=== PATIENT | female | born 1980 | race Caucasian/White ===

== ENCOUNTER 2016-05-08 08:45 | Emergency (ER) | payer OTHER ==
[2016-05-08 08:55] VITALS: BP 126/69; TEMP 97.5; BMI 30.7
[2016-05-08 10:45] LABS: BASOPHIL 1.2 % (0-2.0); EOSINOPHIL 1.6 % (0-4.5); MCH 28.9 pg (25.7-33.7); MCHC 33.7 g/dl (32.0-36.0); MEAN CELL VOLUME 85.9 fl (80-96); MEAN PLT VOLUME 8.3 fl (7.5-11.1); NEUTROPHILS 46.6 % (42.8-82.8); PLATELET COUNT 242 K/MM3 (134-434); RDW 14.3 % (11.6-15.6); WHITE BLOOD COUNT 7.3 K/mm3 (4.0-10.0)
[2016-05-08 10:48] LABS: URINE APPEARANCE SLCLOUDY; URINE BILIRUBIN NEGATIVE (NEGATIVE); URINE COLOR YELLOW; URINE GLUCOSE (UA) NEGATIVE (NEGATIVE); URINE KETONE NEGATIVE (NEGATIVE); URINE NITRITE NEGATIVE (NEGATIVE); URINE PROTEIN NEGATIVE (NEGATIVE); URINE UROBILINOGEN NEGATIVE E.U./dl (0.2-1.0)
[2016-05-08 10:49] LABS: URINE BLOOD 3+ (NEGATIVE); URINE LEUK ESTERASE TRACE (NEGATIVE)
[2016-05-08 10:53] LABS: URINE MUCUS FEW; URINE WBC 5 /hpf (3-5)
[2016-05-08 11:09] LABS: ALBUMIN 3.8 g/dl (3.4-5.0); ANION GAP 7 (8-16); BILIRUBIN,TOTAL 0.6 mg/dL (0.2-1.0); CALCIUM 9.3 mg/dL (8.5-10.1); CO2 26 mmol/L (21-32); CREATININE 0.7 mg/dL (0.55-1.02); GLUCOSE,RANDOM 87 mg/dL (74-106); SGOT/AST 12 U/L (15-37); SGPT/ALT 18 U/L (12-78); TOT PROT 7.5 g/dl (6.4-8.2)
[2016-05-08 11:10] LABS: ALK PHOS 60 U/L (45-117)
--- NOTE | 2016-05-08 11:18 | PDOC ---
History of Present Illness - General History Source: Patient Exam Limitations: No Limitations - History of Present Illness Initial Comments: 05/08/16 11:42 The patient is a 35 year old female, M1, with a significant past medical history of left ovarian cyst who presents to the ED with abdominal pain. The patient notes that the abdominal pain is worse with eating. She states that the pain initiated on the LLQ, 4/10, and radiated to the mid abdomen. She describes the pain as twisting pain. She notes that the pain is alleviated with Pepto. She notes that the ovarian cyst on the left side resolved on its own. She notes that her LMP was 05/03/2016 and she notes that today is the last day of her period. She reports recent sick contact with a coworker who has stomach flu Social history: 6-8 pack years, occasional alcohol use, occasional marijuana use <Alis Durbin - Last Filed: 05/08/16 11:42> <Greg Yarbrough - Last Filed: 05/08/16 14:11> - General Chief Complaint: Pain Stated Complaint: ABD PAIN Time Seen by Provider: 05/08/16 09:14 Past History <Alis Durbin - Last Filed: 05/08/16 11:42> - Past Medical History Other medical history: PT DENIES MECICAL HX - Psycho/Social/Smoking Cessation Hx Anxiety: No Suicidal Ideation: No Smoking History: Current every day smoker Have you smoked in the past 12 months: Yes Number of Cigarettes Smoked Daily: 10 Information on smoking cessation initiated: No 'Breaking Loose' booklet given: 12/26/14 Hx Alcohol Use: No Drug/Substance Use Hx: No Substance Use Type: None <Greg Yarbrough - Last Filed: 05/08/16 14:11> - Past Medical History Allergies/Adverse Reactions: Allergies Allergy/AdvReac Type Severity Reaction Status Date / Time No Known Allergies Allergy Verified 05/08/16 08:55 Home Medications: Ambulatory Orders Ibuprofen 800 mg PO TID #30 tablet 05/08/16 Ondansetron [Zofran *Odt*] 8 mg SL TID #30 od.tablet 05/08/16 Oxycodone HCl/Acetaminophen [Percocet 5-325 mg Tablet] 1 tab PO Q6H #20 tablet MDD 6 05/08/16 Review of Systems - Review of Systems Able to Perform ROS?: Yes Comments:: 05/08/16 11:42 GENERAL/CONSTITUTIONAL: No fever or chills. No weakness. HEAD, EYES, EARS, NOSE AND THROAT: No change in vision. No ear pain or discharge. No sore throat. CARDIOVASCULAR: No chest pain or shortness of breath. RESPIRATORY: No cough, wheezing, or hemoptysis. GASTROINTESTINAL: +abdominal pain, +nausea. No vomiting, diarrhea or constipation. GENITOURINARY: No dysuria, frequency, or change in urination. MUSCULOSKELETAL: No joint or muscle swelling or pain. No neck or back pain. SKIN: No rash NEUROLOGIC: No headache, vertigo, loss of consciousness, or change in strength/ sensation. ENDOCRINE: No increased thirst. No abnormal weight change. HEMATOLOGIC/LYMPHATIC: No anemia, easy bleeding, or history of blood clots. ALLERGIC/IMMUNOLOGIC: No hives or skin allergy. <Alis Durbin - Last Filed: 05/08/16 11:42> *Physical Exam - Vital Signs Last Vital Signs Temp Pulse Resp BP Pulse Ox 97.5 F L 60 16 126/69 98 05/08/16 08:53 05/08/16 08:53 05/08/16 08:53 05/08/16 08:53 05/08/16 08:53 - Physical Exam Comments: 05/08/16 11:43 GENERAL: Awake, alert, and fully oriented, in no acute distress HEAD: No signs of trauma EYES: PERRLA, EOMI, sclera anicteric, conjunctiva clear ENT: Auricles normal inspection, hearing grossly normal, nares patent, oropharynx clear without exudates. Moist mucosa NECK: Normal ROM, supple, no lymphadenopathy, JVD, or masses LUNGS: Breath sounds equal, clear to auscultation bilaterally. No wheezes, and no crackles HEART: Regular rate and rhythm, normal S1 and S2, no murmurs, rubs or gallops ABDOMEN: +Obese , +Hypoactive bowel sounds, +Tenderness to palpation over the LLQ. Soft, normoactive bowel sounds. No guarding, no rebound. No masses EXTREMITIES: Normal range of motion, no edema. No clubbing or cyanosis. No cords, erythema, or tenderness NEUROLOGICAL: Cranial nerves II through XII grossly intact. Normal speech, normal gait SKIN: Warm, Dry, normal turgor, no rashes or lesions noted. <Alis Durbin - Last Filed: 05/08/16 11:42> - Vital Signs Last Vital Signs Temp Pulse Resp BP Pulse Ox 97.5 F L 60 16 126/69 98 05/08/16 08:53 05/08/16 08:53 05/08/16 08:53 05/08/16 08:53 05/08/16 08:53 <Greg Yarbrough - Last Filed: 05/08/16 14:11> ED Treatment Course - LABORATORY CBC & Chemistry Diagram: 05/08/16 10:18 05/08/16 10:18 - ADDITIONAL ORDERS Additional order review: Laboratory Results 05/08/16 05/08/16 10:18 10:18 Sodium 141 Potassium 3.8 Chloride 108 H Carbon Dioxide 26 Anion Gap 7 L BUN 16 Creatinine 0.7 Creat Clearance w eGFR > 60 Random Glucose 87 Calcium 9.3 Total Bilirubin 0.6 AST 12 L ALT 18 Alkaline Phosphatase 60 Total Protein 7.5 Albumin 3.8 Urine Color Yellow Urine Appearance Slcloudy Urine pH 5.0 Ur Specific [place] 1.027 Urine Protein Negative Urine Glucose (UA) Negative Urine Ketones Negative Urine Blood 3+ H Urine Nitrite Negative Urine Bilirubin Negative Urine Urobilinogen Negative Ur Leukocyte Esterase Trace H Urine RBC None Urine WBC 5 Ur Epithelial Cells Moderate Urine Mucus Few Urine HCG, Qual Negative 05/08/16 10:18 RBC 4.44 MCV 85.9 MCHC 33.7 RDW 14.3 MPV 8.3 Neutrophils % 46.6 Lymphocytes % 44.3 H Monocytes % 6.3 Eosinophils % 1.6 Basophils % 1.2 <Alis Durbin - Last Filed: 05/08/16 11:42> - LABORATORY CBC & Chemistry Diagram: 05/08/16 10:18 05/08/16 10:18 - ADDITIONAL ORDERS Additional order review: Laboratory Results 05/08/16 05/08/16 10:18 10:18 Sodium 141 Potassium 3.8 Chloride 108 H Carbon Dioxide 26 Anion Gap 7 L BUN 16 Creatinine 0.7 Creat Clearance w eGFR > 60 Random Glucose 87 Calcium 9.3 Total Bilirubin 0.6 AST 12 L ALT 18 Alkaline Phosphatase 60 Total Protein 7.5 Albumin 3.8 Urine Color Yellow Urine Appearance Slcloudy Urine pH 5.0 Ur Specific [place] 1.027 Urine Protein Negative Urine Glucose (UA) Negative Urine Ketones Negative Urine Blood 3+ H Urine Nitrite Negative Urine Bilirubin Negative Urine Urobilinogen Negative Ur Leukocyte Esterase Trace H Urine RBC None Urine WBC 5 Ur Epithelial Cells Moderate Urine Mucus Few Urine HCG, Qual Negative 05/08/16 10:18 RBC 4.44 MCV 85.9 MCHC 33.7 RDW 14.3 MPV 8.3 Neutrophils % 46.6 Lymphocytes % 44.3 H Monocytes % 6.3 Eosinophils % 1.6 Basophils % 1.2 <Greg Yarbrough - Last Filed: 05/08/16 14:11> Medical Decision Making - Medical Decision Making 05/08/16 11:44 Patient is a 35 year old female with no pmhx who presents to the ED with abdominal pain that is worse with eating.. Will order labs, IVF, and transvaginal US. Will reassess after the results are back. <Alis Durbin - Last Filed: 05/08/16 11:42> *DC/Admit/Observation/Transfer - Attestations Scribe Attestion: 05/08/16 11:44 Documentation prepared by CHRISTINE Sweeney, acting as medical equipment repairer for Greg Yarbrough MD/DO. <Alis Durbin - Last Filed: 05/08/16 11:42> - Discharge Dispostion Admit: No - Attestations Physician Attestion: 05/08/16 11:18 I, Dr. Greg Yrabrough, attest that this document has been prepared under my direction and personally reviewed by me in its entirety. I further attest, that it accurately reflects all work, treatment, procedures and medical decision -making performed by me. <Greg Yarbrough - Last Filed: 05/08/16 14:11> Diagnosis at time of Disposition: Ovarian cyst Qualifiers: Laterality: left Qualified Code(s): N83.20 - Unspecified ovarian cysts - Discharge Dispostion Disposition: HOME Condition at time of disposition: Good - Prescriptions Prescriptions: Ibuprofen 800 mg PO TID #30 tablet Oxycodone HCl/Acetaminophen [Percocet 5-325 mg Tablet] 1 tab PO Q6H #20 tablet MDD 6 Ondansetron [Zofran *Odt*] 8 mg SL TID #30 od.tablet - Patient Instructions Printed Discharge Instructions: DI for Ovarian Cyst Additional Instructions: Roseya- You do have an ovarian cyst..... looks on CT that it is already ruptured.... so your pain should be less each day. Prescriptions for Pain medicine and Nausea medicine went directly to your pharmacy....... Percocet is only for really bad pain and if you take it, you should not drive or drink alcohol. Zofran is for the upset stomach you will get from the percocet. Follow up with your meal cook. Return to us if worse or any problems. Hope you feel better soon. Best- Dr. Greg Yarbrough
[2016-05-08] MEDS ORDERED: SODIUM CHLORIDE 1,000 ML IV STA (11:21)
[2016-05-08 14:31] VITALS: PULSE 64
== END 2016-05-08 14:30 | disposition home or self-care (01) ==
LOC: JER 08:45
PROC: 3E0337Z Introduction of Electrolytic and Water Balance Substance into Peripheral Vein, Percutaneous Approach (ICD-10-PCS; principal; 2016-05-08)
DX: N83.292 Other ovarian cyst, left side (principal); F17.210 Nicotine dependence, cigarettes, uncomplicated
CPT/HCPCS: 36415; 76830-TC; 80053; 81003; 81015; 84703; 85025; 96360; 99282-25

== ENCOUNTER 2016-10-09 08:39 | Emergency (ER) | payer SELFPAY ==
[2016-10-09 08:47] VITALS: BP 136/72; PULSE 68; TEMP 98.1; BMI 30.7
--- NOTE | 2016-10-09 09:01 | PDOC ---
History of Present Illness - General History Source: Patient Exam Limitations: No Limitations - History of Present Illness Initial Comments: CHIEF COMPLAINT: 35 y/o afebrile female with no significant PMH here for a work note. HISTORY OF PRESENT ILLNESS: The patient states she thinks she ate some bad food last night because a few hours afterwards she began feeling nauseous and vomited a few times. She states she called out from work early this morning and needs a note for work. She states she has not vomited in many hours. She denies nausea currently. She states she was able to drink coffee this morning without vomiting. She denies f/c, LOVE, dizziness, n/v/d, CP, SOB, abd pain, back pain, hematuria, dysuria. Vital signs on arrival are within normal limits. REVIEW OF SYSTEMS: GENERAL/CONSTITUTIONAL: No fever/chills. No weakness. No weight change. HEAD, EYES, EARS, NOSE AND THROAT: No change in vision. No ear pain or discharge. No sore throat. CARDIOVASCULAR: No chest pain or shortness of breath. RESPIRATORY: No cough, wheezing, or hemoptysis. GASTROINTESTINAL: +nausea and vomiting - resolved. No diarrhea, constipation. No abd pain. GENITOURINARY: No dysuria, frequency, or change in urination. MUSCULOSKELETAL: No joint or muscle swelling or pain. No neck or back pain. SKIN: No rash or easy bruising. NEUROLOGIC: No headache, vertigo, loss of consciousness, or loss of sensation. PHYSICAL EXAM: GENERAL: The patient is awake, alert, and fully oriented, in no acute distress. She is well appearing and ambulatory. HEAD: Normal with no signs of trauma. ENT: Pupils equal, round and reactive to light, extraocular movements intact, sclera anicteric, conjunctiva clear. Neck supple. LUNGS: Clear to auscultation bilaterally. Normal excursion. No respiratory distress or use of accessory muscles. CV: RRR, S1/S2, no MRG. Cap refill < 2 sec. ABDOMEN: Soft, non-distended, non-tender even to deep palpation, no hepatomegaly or splenomegaly, no masses. EXTREMITIES: Normal range of motion, no edema. NEUROLOGICAL: Normal speech, normal gait. CN II-XII grossly intact. PSYCH: Normal mood, normal affect. SKIN: Warm, dry, normal turgor, no rashes or lesions noted. <Wohltman,Carrie - Last Filed: 10/09/16 09:15> <Jerilyn Nolan - Last Filed: 10/13/16 08:41> - General Chief Complaint: Nausea/Vomiting Stated Complaint: VOMITING Time Seen by Provider: 10/09/16 08:55 Past History - Past Medical History Other medical history: none - Psycho/Social/Smoking Cessation Hx Anxiety: No Suicidal Ideation: No Smoking History: Current every day smoker Have you smoked in the past 12 months: Yes Number of Cigarettes Smoked Daily: 10 Information on smoking cessation initiated: Yes 'Breaking Loose' booklet given: 10/09/16 Hx Alcohol Use: No Drug/Substance Use Hx: No Substance Use Type: None <Carrie Pavon - Last Filed: 10/09/16 09:15> <Jerilyn Nolan - Last Filed: 10/13/16 08:41> - Past Medical History Allergies/Adverse Reactions: Allergies Allergy/AdvReac Type Severity Reaction Status Date / Time No Known Allergies Allergy Verified 10/09/16 08:44 Home Medications: Ambulatory Orders Ibuprofen 800 mg PO TID #30 tablet 05/08/16 Ondansetron [Zofran *Odt*] 8 mg SL TID #30 od.tablet 05/08/16 Oxycodone HCl/Acetaminophen [Percocet 5-325 mg Tablet] 1 tab PO Q6H #20 tablet MDD 6 05/08/16 *Physical Exam - Vital Signs Last Vital Signs Temp Pulse Resp BP Pulse Ox 98.1 F 68 18 136/72 100 10/09/16 08:45 10/09/16 08:45 10/09/16 08:45 10/09/16 08:45 10/09/16 08:45 <Carrie Pavon - Last Filed: 10/09/16 09:15> - Vital Signs Last Vital Signs Temp Pulse Resp BP Pulse Ox 98.1 F 68 18 136/72 100 10/09/16 08:45 10/09/16 08:45 10/09/16 08:45 10/09/16 08:45 10/09/16 08:45 <Jerilyn Nolan - Last Filed: 10/13/16 08:41> Medical Decision Making - Medical Decision Making A/P: 35 y/o afebrile female with nausea and vomiting last night that has resolved. Patient has normal vital signs and was able to pass a PO challenge this morning, drinking coffee at home without vomiting. She states she is here because she called out from work and needs a note. She does not have a PCP. Will discharge to home with work note and supportive care instructions. Pt instructed to return to the ER with any worsening or concerning symptoms. The patient verbalizes understanding of all instructions, has no further questions and is awaiting discharge. <Carrie Pavon - Last Filed: 10/09/16 09:15> *DC/Admit/Observation/Transfer <Carrie Pavon - Last Filed: 10/09/16 09:15> - Attestations Physician Attestion: I reviewed the case with the mid-level practitioner and agree with the mid- level practitioner's assessment, diagnosis and disposition. <Jerilyn Nolan - Last Filed: 10/13/16 08:41> Diagnosis at time of Disposition: Nausea and vomiting Qualifiers: Vomiting type: unspecified Vomiting Intractability: non-intractable Qualified Code(s): R11.2 - Nausea with vomiting, unspecified - Discharge Dispostion Disposition: HOME Condition at time of disposition: Good - Patient Instructions Printed Discharge Instructions: DI for Nausea -- Adult, DI for Vomiting -- Adult, [place] Diet Additional Instructions: Discharge Instructions: -Follow bland diet suggestions -Drink plenty of fluids -Return to the ER with any worsening or concerning symptoms - Post Discharge Activity Work/School Note: Back to Work
== END 2016-10-09 09:35 | disposition home or self-care (01) ==
LOC: JER 08:39
DX: R11.2 Nausea with vomiting, unspecified (principal)
CPT/HCPCS: 99281-25

== ENCOUNTER 2017-07-03 08:20 | Emergency (ER) | payer OTHER ==
[2017-07-03 08:33] VITALS: TEMP 97.9; BMI 37.4
--- NOTE | 2017-07-03 08:37 | PDOC ---
History of Present Illness - General Chief Complaint: Vaginal Bleeding Stated Complaint: SPOTTING (12 WKS ) Time Seen by Provider: 07/03/17 08:36 History Source: Patient - History of Present Illness Initial Comments: 07/03/17 08:46 Patient is a 36 year old female with a PMH of L ovarian cyst and at a self- reported 12 weeks gestation who presents c/o dark red blood (no clots) during urination this morning. Patient noticed the blood after she wiped and denies any current associated abdominal cramping though patient notes some abdominal cramping yesterday afternoon that resolved within 5-10 minutes. Patient has urinated twice since noticing the blood and states her urine is pinkish. Patient denies any fevers/chills and states her last OB-Security Site Supervisor evaluation was last week with a abdominal U/S which showed everything was normal. Patient notes she was evaluated for a similar complaint last month at [facility] with no concerning findings and normal on OB-Security Site Supervisor follow-up. PMH is significant for remote history of spontaneous 15 years previous at approximately 6-8 weeks gestation. Patient denies any chest pain, shortness of breath, diarrhea/constipation, nausea/vomiting, fevers/chills, recent travel or sick contacts. NKDA Surgical: denies Social: denies current nicotine use (previously 1/2 ppd- prior to ), denies alcohol, denies recreational drugs OB-Security Site Supervisor: Dr. Anna ([facility]) Past History - Past Medical History Allergies/Adverse Reactions: Allergies Allergy/AdvReac Type Severity Reaction Status Date / Time No Known Allergies Allergy Verified 07/03/17 08:28 Home Medications: Ambulatory Orders Ibuprofen 800 mg PO TID #30 tablet 05/08/16 Ondansetron [Zofran *Odt*] 8 mg SL TID #30 od.tablet 05/08/16 Oxycodone HCl/Acetaminophen [Percocet 5-325 mg Tablet] 1 tab PO Q6H #20 tablet MDD 6 05/08/16 COPD: No Other medical history: DENIES. - Suicide/Smoking/Psychosocial Hx Smoking History: Former smoker Have you smoked in the past 12 months: Yes Number of Cigarettes Smoked Daily: 10 Information on smoking cessation initiated: No 'Breaking Loose' booklet given: 10/09/16 Hx Alcohol Use: No Drug/Substance Use Hx: No Substance Use Type: None Review of Systems - Review of Systems Constitutional: No: Chills, Fever HEENTM: No: Recent change in vision Respiratory: No: Cough, Shortness of Breath Cardiac (ROS): No: Chest Pain, Lightheadedness, Palpitations, Syncope ABD/GI: No: Constipated, Diarrhea, Nausea, Vomiting : Yes: Other (dark red blood w/urination). No: Burning, Dysuria *Physical Exam - Vital Signs Last Vital Signs Temp Pulse Resp BP Pulse Ox 97.9 F 78 19 116/67 99 07/03/17 08:28 07/03/17 08:28 07/03/17 08:28 07/03/17 08:28 07/03/17 08:28 - Physical Exam Comments: 07/03/17 10:26 GENERAL: Awake, alert, and fully oriented, in no acute distress HEAD: No signs of trauma EYES: PERRLA, EOMI, sclera anicteric, conjunctiva clear NECK: Nontender, no stepoffs, Normal ROM, supple, no lymphadenopathy, JVD, or masses LUNGS: Breath sounds equal, clear to auscultation bilaterally. No wheezes, and no crackles HEART: Regular rate and rhythm, normal S1 and S2, no murmurs, rubs or gallops ABDOMEN: Soft, nontender, normoactive bowel sounds. Fundus below pubic symphsis : Pelvic exam: closed cervical os, no blood in vaginal vault, no CMT, non- palpable adenexa. ED Treatment Course - LABORATORY CBC & Chemistry Diagram: 07/03/17 09:25 07/03/17 09:55 Medical Decision Making - Medical Decision Making 07/03/17 08:51 36 year old female at a self-reported 12 week gestation presents with vaginal bleed w/urination. DDx includes threatenened AB, placenta previa -- Will obtain basic labs, T/S, as pelvic exam. Reassess. 07/03/17 10:05 Bedside U/S shows FHR 157 with normal movement; UA: (-) blood, (-) proteinuria. Labs pending. 07/03/17 11:18 CBC shows no anemia. Patient comfortable, notes multiple episodes of urination in ED without any delfino blood 07/03/17 11:44 Blood Type A positive - no indication for Rhogam. Patient ambulatory around unit, tolerating PO intake. Will discharge home with return precautions and OB- Security Site Supervisor follow-up in the next 48 hours. I discussed the physical exam findings, ancillary test results and final diagnoses with the patient. I answered all of the patient's questions. The patient was satisfied with the care received and felt comfortable with the discharge plan and treatment plan. The patient will return to the Emergency Department with any new, persistent or worsening symptoms. *DC/Admit/Observation/Transfer Diagnosis at time of Disposition: Hematuria - Discharge Dispostion Disposition: HOME Condition at time of disposition: Good Admit: No - Referrals Referrals: ON STAFF,NOT [Primary Care Provider] - Caryl Florence MD [Staff Physician] - - Patient Instructions Printed Discharge Instructions: Working During : Staying Healthy and Managing Stress Additional Instructions: Please follow-up with your OB-Security Site Supervisor in the next 24-48 hours for further evaluation. Your labs in today showed no concerning findings and a transabdominal ultrasound of your baby showed normal movement with a HR of 157 BPM. As requested, a list of [facility] affiliated OB-Security Site Supervisor has been provided for you. Return to the Emergency Department for any new/worsening /concerning symptoms. - Post Discharge Activity Forms/Work/School Notes: Back to Work
[2017-07-03 09:30] LABS: BASO % 0.6 % (0-2.0); EOS % 1.1 % (0-4.5); HEMATOCRIT 36.6 % (32.4-45.2); HEMOGLOBIN 11.9 GM/dL (10.7-15.3); LYMPH % 25.5 % (8-40); MCH 27.5 pg (25.7-33.7); MCHC 32.4 g/dl (32.0-36.0); MEAN CELL VOLUME 84.7 fl (80-96); MEAN PLT VOLUME 8.7 fl (7.5-11.1); MONO % 5.3 % (3.8-10.2); NEUT % 67.5 % (42.8-82.8); PLATELET COUNT 252 K/MM3 (134-434); RBC 4.32 M/mm3 (3.60-5.2); RDW 18.6 % (11.6-15.6); WHITE BLOOD COUNT 7.5 K/mm3 (4.0-10.0)
[2017-07-03 09:47] LABS: URINE APPEARANCE CLOUDY; URINE BILIRUBIN NEGATIVE (<2.0 mg/dL); URINE BLOOD NEGATIVE (NEGATIVE); URINE GLUCOSE (UA) NEGATIVE (NEGATIVE); URINE KETONE NEGATIVE (NEGATIVE); URINE LEUK ESTERASE NEGATIVE (NEGATIVE); URINE NITRITE NEGATIVE (NEGATIVE); URINE PROTEIN NEGATIVE (NEGATIVE)
[2017-07-03 09:49] LABS: URINE COLOR DK YELLOW
--- NOTE | 2017-07-03 10:24 | PDOC ---
Attending Attestation - Resident Resident Name: Yelena Pelletier - ED Attending Attestation I have performed the following: I have examined & evaluated the patient, The case was reviewed & discussed with the resident, I agree w/resident's findings & plan, Exceptions are as noted - HPI HPI: 07/03/17 10:21 36y/o 12wks gestation p/w vaginal spotting noted as some blood on wiping after urination. no dysuria/frequency/urgency. no cramping/clots - Physicial Exam PE: 07/03/17 10:22 VSS abd benign bedside sono with IUP, FHR 157 pelvic per resident - Medical Decision Making 07/03/17 10:22 Patient seen and evaluated with the resident. I agree with the overall evaluation, assessment, and management with the following summary of visit: 36y/o F with first trimester vaginal bleeding. Had documented IUP with OB last week, w/u for threatened miscarriage. rh, ua, hcg dispo accordingly
[2017-07-03 10:42] LABS: ALBUMIN 3.3 g/dl (3.4-5.0); ANION GAP 7 (8-16); BLOOD UREA NITROGEN 14 mg/dL (7-18); CALCIUM 9.1 mg/dL (8.5-10.1); CHLORIDE 105 mmol/L (98-107); CO2 24 mmol/L (21-32); CREATININE 0.5 mg/dL (0.55-1.02); GLUCOSE,RANDOM 113 mg/dL (74-106); POTASSIUM 3.9 mmol/L (3.5-5.1); SGOT/AST 15 U/L (15-37); SGPT/ALT 22 U/L (12-78); SODIUM 136 mmol/L (136-145); TOT PROT 7.3 g/dl (6.4-8.2)
[2017-07-03 10:48] LABS: BILIRUBIN,TOTAL < 0.1 mg/dL (0.2-1.0)
[2017-07-03 10:58] LABS: ALK PHOS 63 U/L (45-117)
[2017-07-03 12:04] VITALS: BP 114/72; PULSE 80
== END 2017-07-03 11:45 | disposition home or self-care (01) ==
LOC: JER 08:20
DX: O26.891 Other specified pregnancy related conditions, first trimester (principal); R31.9 Hematuria, unspecified; Z3A.12 12 weeks gestation of pregnancy
CPT/HCPCS: 36415; 80053; 81003; 84702; 85025; 86850; 86900; 86901; 87086; 99281-25

== ENCOUNTER 2017-07-09 07:57 | Emergency (ER) | payer OTHER ==
[2017-07-09 08:06] VITALS: BP 114/70; PULSE 74; TEMP 97.8; BMI 37.4
--- NOTE | 2017-07-09 08:41 | PDOC ---
History of Present Illness - General Chief Complaint: Vaginal Bleeding Stated Complaint: 14WKS BLEEDING Time Seen by Provider: 07/09/17 08:31 - History of Present Illness Initial Comments: 07/09/17 08:50 The patient is a 36 A1 14 week female who presents for evaluation of vaginal spotting. The patient reports that this is her 3rd visit in the last week for similar symptoms. She was evaluated in the ED on 07/03/17 and for similar complaints with negative work ups. She states that she has been unable to follow up with her normal OB physician. She states that when she awoke this morning, she noted some blood on her pad and when she wiped. She noted that there was more blood than her prior episodes prompting her presentation to the ED for evaluation. She states that she is asymptomatic at this time and is not currently experiencing any vaginal bleeding. The patient otherwise denies fevers, chills, SOB, chest pain, abdominal pain, nausea, vomiting, or changes with urination or bowel movements. Past History - Past Medical History Allergies/Adverse Reactions: Allergies Allergy/AdvReac Type Severity Reaction Status Date / Time No Known Allergies Allergy Verified 07/09/17 08:03 Home Medications: Ambulatory Orders No122/Iron/Folic Acid [ Multi Tablet] 1 each PO DAILY 07/06/17 COPD: No - Reproductive History (#): 3 Para: 1 Spontaneous : 1 - Immunization History Immunization Up to Date: Yes - Suicide/Smoking/Psychosocial Hx Smoking History: Never smoked Have you smoked in the past 12 months: Yes Number of Cigarettes Smoked Daily: 10 Information on smoking cessation initiated: No 'Breaking Loose' booklet given: 10/09/16 Hx Alcohol Use: No Drug/Substance Use Hx: No Substance Use Type: None Review of Systems - Review of Systems Comments:: 07/09/17 09:03 Constitutional: No fevers, chills, fatigue, malaise HEENT: No Rhinorrhea, nasal congestion, visual changes Cardiovascular: No chest pain, syncope, palpitations, lightheadedness Respiratory: No Cough, SOB, Hemoptysis, Gastrointestinal: No Abdominal pain, Nausea, Vomiting, Constipation, Diarrhea, Melena Genitourinary: Vaginal Spotting. No Dysuria, Frequency, Urgency, Hesitancy, Hematuria, Flank pain Musculoskeletal: No Myalgia, arthralgia Skin: No rashes, itching, bruising, pallor Neurologic: No Headache, Dizziness, Numbness, Weakness, or Tingling Psychiatric: No Hallucinations. No SI or HI *Physical Exam - Vital Signs Last Vital Signs Temp Pulse Resp BP Pulse Ox 97.8 F 74 18 114/70 100 07/09/17 08:03 07/09/17 08:03 07/09/17 08:03 07/09/17 08:03 07/09/17 08:03 - Physical Exam Comments: 07/09/17 09:04 General Appearance: Nourished. No Apparent Distress HEENT: EOMI, RAZA. No Pharyngeal Erythema, Tonsillar Exudate, Tonsillar Erythema Neck: No Cervical Lymphadenopathy Respiratory/Chest: Lungs Clear, Normal Breath Sounds. No Crackles, Rales, Rhonchi, Wheezing Cardiovascular: Regular Rhythm, Regular Rate. No Murmur, Gallops, Rubs Gastrointestinal/Abdominal: Normal Bowel Sounds, Soft. No Guarding, Rebound, Tenderness Musculoskeletal: No CVA Tenderness Extremity: Normal Capillary Refill Integumentary: Normal Color, Dry, Warm Neurologic: Fully Oriented, Alert, Normal Mood/Affect, Normal Response, ED Treatment Course - LABORATORY CBC & Chemistry Diagram: 07/09/17 09:15 07/09/17 09:15 Medical Decision Making - Medical Decision Making 07/09/17 09:08 The patient is a 36 A1 14 week female who presents for evaluation of vaginal spotting. Differential includes but is not limited to: Threatened , Missed , Dysfunctional Bleeding, infections, metabolic derangement. The patient appears clinically well on exam and is currently asymptomatic. However, given her change in symptoms, we will obtain a cbc, cmp , beta-quant, and transvaginal to evaluate further. We will continue to monitor and reassess. 07/09/17 11:01 CBC, cmp, ua are unremarkable. Transvaginal US demonstrates heart rate and is otherwise normal as preliminarily read by ER physician. The patient remains asymptomatic and we are comfortable discharging the patient home with OB /AIR ANALYSIS TECHNICIAN follow up at this time. We discussed the results, plan, and return precautions with the patient who voiced understanding and is agreeable with the plan. *DC/Admit/Observation/Transfer Diagnosis at time of Disposition: Vaginal bleeding affecting early - Discharge Dispostion Disposition: HOME Condition at time of disposition: Good - Referrals Referrals: Evie Guidry MD [Staff Physician] - Bucky Hardin MD [Staff Physician] - - Patient Instructions Printed Discharge Instructions: DI for Vaginal Bleeding During Additional Instructions: Please return to the ER if you experience concerning or worsening symptoms including worsening bleeding, abdominal pain, fevers, or vomiting. Your lab results and ultrasound were normal here in the ER. It is extremely important that you call to schedule a follow up appointment with your POLICY INTERN physician within 1-2 days to discuss your ER visit and further management of your symptoms. - Post Discharge Activity Forms/Work/School Notes: Back to Work
--- NOTE | 2017-07-09 09:10 | PDOC ---
Attending Attestation - HPI HPI: The patient is a 36 year old female A1, 14 week female with no significant past medical history of who presents to the emergency department for evaluation of vaginal spotting. Of note, the patient reports this is her 3rd visit for similar symptoms. She reports that she observed a large amount of blood on her pad compared to other episodes when she wiped which prompted her visit to the ED. At presentation, she reports that there was not much compared to previous episodes.The patient denies chest pain, shortness of breath, headache, and dizziness. Denies fevers, chills, nausea, vomiting, diarrhea, and constipation. Denies any changes with urination or bowel movements. Allergies: NKA Social history: Patient admits to smoking 10 cigarettes a day. No reported alcohol or drug use. - Physicial Exam PE: Vitals: Triage Vital signs reviewed General Appearance: no acute distress, well nourished well developed, Head: Atraumatic, normocephalic Neck: Supple;No Nuchal rigidity Chest Wall: Nontender Cardiac: Regular rate and rhythm, no murmurs, no rubs, no gallops, Lungs: Clear to auscultation bilateral, good air movement bilaterally, Abdomen: Soft, nondistended, normal bowel sounds, nontender to palpation Rectal: Exam deferred Extremities: Full range of motion to all extremities, no cyanosis, clubbing, or edema Skin: Warm and dry, no rashes or lesions, no petechiae Psych: normal mood, normal affect - Medical Decision Making The patient is a 36 year old female A1, 14 week female with no significant past medical history of who presents to the emergency department for evaluation of vaginal spotting. Plan: -cbc -cmp -beta-quant -transvaginal <Adolfo Sheth - Last Filed: 07/09/17 15:23> - Resident Resident Name: Maxi Pineda - ED Attending Attestation I have performed the following: I have examined & evaluated the patient, The case was reviewed & discussed with the resident, I agree w/resident's findings & plan, Exceptions are as noted - Medical Decision Making Well-appearing no apparent distress positive IUP on ultrasound patient will follow-up with her PROPERTY DISPOSAL OFFICER this week Findings, the need for follow-up, strict return instructions discussed with patient. <Reji Oconnell - Last Filed: 07/09/17 16:47> Attestations - Attestations Documentation prepared by Adolfo Sheth, acting as medical secretary for Reji Oconnell MD. <Adolfo Sheth - Last Filed: 07/09/17 15:23>
[2017-07-09 09:25] LABS: BASO % 0.6 % (0-2.0); EOS % 1.2 % (0-4.5); HEMOGLOBIN 11.4 GM/dL (10.7-15.3); LYMPH % 26.7 % (8-40); MCH 27.7 pg (25.7-33.7); MCHC 33.6 g/dl (32.0-36.0); MEAN CELL VOLUME 82.3 fl (80-96); MEAN PLT VOLUME 8.1 fl (7.5-11.1); MONO % 7.1 % (3.8-10.2); NEUT % 64.4 % (42.8-82.8); PLATELET COUNT 264 K/MM3 (134-434); RBC 4.13 M/mm3 (3.60-5.2); RDW 15.5 % (11.6-15.6); WHITE BLOOD COUNT 7.9 K/mm3 (4.0-10.0)
[2017-07-09 09:38] LABS: URINE APPEARANCE SLCLOUDY; URINE BILIRUBIN NEGATIVE (<2.0 mg/dL); URINE BLOOD 2+ (NEGATIVE); URINE COLOR YELLOW; URINE GLUCOSE (UA) NEGATIVE (NEGATIVE); URINE KETONE NEGATIVE (NEGATIVE); URINE LEUK ESTERASE TRACE (NEGATIVE); URINE NITRITE NEGATIVE (NEGATIVE); URINE PROTEIN NEGATIVE (NEGATIVE); URINE UROBILINOGEN NEGATIVE mg/dL (0.2-1.0)
[2017-07-09 09:43] LABS: ALBUMIN 3.1 g/dl (3.4-5.0); ANION GAP 7 (8-16); BILIRUBIN,TOTAL 0.2 mg/dL (0.2-1.0); BLOOD UREA NITROGEN 11 mg/dL (7-18); CALCIUM 8.7 mg/dL (8.5-10.1); CHLORIDE 106 mmol/L (98-107); CO2 24 mmol/L (21-32); CREATININE 0.4 mg/dL (0.55-1.02); GLUCOSE,RANDOM 86 mg/dL (74-106); POTASSIUM 4.2 mmol/L (3.5-5.1); SGOT/AST 12 U/L (15-37); SGPT/ALT 23 U/L (12-78); SODIUM 137 mmol/L (136-145)
[2017-07-09 09:44] LABS: ALK PHOS 58 U/L (45-117)
[2017-07-09 09:55] LABS: EPI CELLS RARE /HPF (FEW); URINE MUCUS RARE
== END 2017-07-09 12:34 | disposition home or self-care (01) ==
LOC: JER 07:57
DX: O26.891 Other specified pregnancy related conditions, first trimester (principal); O46.92 Antepartum hemorrhage, unspecified, second trimester; Z3A.14 14 weeks gestation of pregnancy
CPT/HCPCS: 36415; 76817-TC; 80053; 81003; 81015; 84702; 85025; 99284-25

== ENCOUNTER 2017-12-29 16:10 | Emergency (ER) | payer OTHER ==
[2017-12-29 16:26] VITALS: BMI 40.4
--- NOTE | 2017-12-29 16:49 | PDOC ---
History of Present Illness - General Chief Complaint: Injury Stated Complaint: INJURY Time Seen by Provider: 12/29/17 16:21 - History of Present Illness Initial Comments: 37 yo F A1 39 weeks here with a head injury. She was sitting on the toilet while part of her ceiling broke and fell on her head, disrupting her bathroom routine. She has a small bruise on the occipital aspect of her head. There was no external bleeding or abrasions. She did not experience any LOC, denies taking blood thinners, and recalls the entire event. She is very upset with her landlord. She denies any nausea or vomiting. Denies having a headache or visionary changes. Denies abdominal pain, cramping or abnormal movement. Denies weakness, numbness or tingling. Denies recent fevers, chills or infections. Denies any chest pain, SOB or difficulty breathing. Denies any neck or shoulder pain. Social hx: Denies using alcohol, cigarettes, or illicit drugs. Allergies: NKA, NKDA Pcp + welfare analyst: Dr. Guidry Past History - Past Medical History Allergies/Adverse Reactions: Allergies Allergy/AdvReac Type Severity Reaction Status Date / Time No Known Allergies Allergy Verified 12/29/17 16:26 Home Medications: Ambulatory Orders No122/Iron/Folic Acid [ Multi Tablet] 1 each PO DAILY 07/06/17 COPD: No - Reproductive History (#): 3 Para: 1 Spontaneous : 1 - Immunization History Immunization Up to Date: Yes - Suicide/Smoking/Psychosocial Hx Smoking History: Never smoked Have you smoked in the past 12 months: Yes Number of Cigarettes Smoked Daily: 10 Information on smoking cessation initiated: No 'Breaking Loose' booklet given: 10/09/16 Hx Alcohol Use: No Drug/Substance Use Hx: No Substance Use Type: None Review of Systems - Review of Systems Comments:: 12/29/17 16:52 CONSTITUTIONAL: Absent: fever, chills, diaphoresis, generalized weakness, malaise, loss of appetite HEENT: Absent: rhinorrhea, nasal congestion, throat pain, throat swelling, difficulty swallowing, mouth swelling, ear pain, eye pain, visual Changes CARDIOVASCULAR: Absent: chest pain, syncope, palpitations, irregular heart rate, lightheadedness , peripheral edema RESPIRATORY: Absent: cough, shortness of breath, dyspnea with exertion, orthopnea, wheezing, stridor, hemoptysis GASTROINTESTINAL: Absent: abdominal pain, abdominal distension, nausea, vomiting, diarrhea, constipation, melena, hematochezia GENITOURINARY: Present: frequency (She's ) Absent: dysuria, urgency, hesitancy, hematuria, flank pain, genital pain MUSCULOSKELETAL: Absent: myalgia, arthralgia, joint swelling SKIN: Absent: rash, itching, pallor HEMATOLOGIC/IMMUNOLOGIC: Absent: easy bleeding, easy bruising, lymphadenopathy, frequent infections ENDOCRINE: Absent: unexplained weight gain, unexplained weight loss, heat intolerance, cold intolerance NEUROLOGIC: Absent: headache, focal weakness or paresthesias, dizziness, unsteady gait, seizure, mental status changes, bladder or bowel incontinence PSYCHIATRIC: Absent: anxiety, depression, suicidal or homicidal ideation, hallucinations. *Physical Exam - Vital Signs Last Vital Signs Temp Pulse Resp BP Pulse Ox 97.8 F 84 16 119/75 99 12/29/17 16:22 12/29/17 16:22 12/29/17 16:22 12/29/17 16:22 12/29/17 16:22 - Physical Exam Comments: Head: There is a small occipital bruise where the ceiling piece hit her head. No cuts or bleeding. No hematoma. GENERAL: Well developed, well nourished. Awake and alert. No acute distress. HEENT: Normocephalic, atraumatic. PERRLA, EOMI. No conjunctival pallor. Sclera are non- icteric. Moist mucous membranes. Oropharynx is clear. NECK: Supple. Full ROM. No JVD. No thyromegaly. No lymphadenopathy. CARDIOVASCULAR: Regular rate and rhythm. No murmurs, rubs, or gallops. Distal pulses are 2+ and symmetric. PULMONARY: No evidence of respiratory distress. Lungs clear to auscultation bilaterally. No wheezing, rales or rhonchi. ABDOMINAL: Gravid uterus consistent with 39 weeks gestation. Non-distended. No rebound or guarding. No organomegaly. Normoactive bowel sounds. MUSCULOSKELETAL Normal range of motion at all joints. No bony deformities or tenderness. No CVA tenderness. EXTREMITIES: No cyanosis. No clubbing. No edema. No calf tenderness. SKIN: Warm and dry. Normal capillary refill. No rashes. No jaundice. NEUROLOGICAL: Alert, awake, appropriate. Cranial nerves 2-12 intact. No deficits to light touch in face, upper extremities and lower extremities. No motor deficits in the in face, upper extremities and lower extremities. Normal speech. Gait is normal without ataxia. PSYCHIATRIC: Cooperative. Good eye contact. Appropriate mood and affect. Medical Decision Making - Medical Decision Making 37 yo F A1 39 weeks here with a head injury after ceiling piece fell on head. There is a small bruise, no bleeding, no hematoma. She denies LOC or taking blood thinners. She came to the ED bc she is nervous given her prior miscarriage. She states she does not need tylenol and ice is fine. Plan: ICE then discharge. If still in pain will consider tylenol. *DC/Admit/Observation/Transfer Diagnosis at time of Disposition: Head injury - Discharge Dispostion Disposition: HOME Condition at time of disposition: Improved Decision to Admit order: No - Referrals Referrals: Wu Lopez MD [Staff Physician] - - Patient Instructions Printed Discharge Instructions: DI for Closed Head Injury Additional Instructions: You came into the ER with some head pain after the ceiling broke and fell on your head. We believe the best way to treat the pain is with ice and if you need more pain control you can take tylenol. Please make sure to follow up with your primary care doctor in the next 3 to 5 days to make sure your pain has gone away and you are getting better. Please come back to the emergency room if you get a headache, blurry vision, pass out, get a high fever, start vomiting, or have any other new or worsening concerns. Thank you for coming to the [facility] ER. We hope you feel better soon. Print Language: SURINAMESE - Post Discharge Activity
--- NOTE | 2017-12-29 17:49 | PDOC ---
Attending Attestation - Resident Resident Name: Glen Donohue - ED Attending Attestation I have performed the following: I have examined & evaluated the patient, The case was reviewed & discussed with the resident, I agree w/resident's findings & plan, Exceptions are as noted - HPI HPI: 12/29/17 17:49 The patient is a 37 year old 39 weeks female A1, with no significant past medical history, who presents to the emergency department s/p head injury. As per patient, she was at home on the toilet when a piece of ceiling tile hit her on the head. She notes initial pain to the site which has since resolved after icing. She denies any recent LOC, weakness, tingling, or active bleeding. She denies recent fevers, chills, headache or dizziness. She denies recent nausea, vomit, diarrhea or constipation. She denies recent dysuria, frequency, or hematuria. She denies recent chest pain or shortness of breath. Allergies: NKDA Past surgical history: None reported. GOLF COURSE PATROLLER: Dr. Guidry - Physicial Exam PE: 12/29/17 17:19 GENERAL: Awake, alert, and fully oriented, in no acute distress HEAD: No signs of trauma EYES: PERRLA, EOMI, sclera anicteric, conjunctiva clear ENT: Auricles normal inspection, hearing grossly normal, nares patent, oropharynx clear without exudates. Moist mucosa NECK: Normal ROM, supple, no lymphadenopathy, JVD, or masses LUNGS: Breath sounds equal, clear to auscultation bilaterally. No wheezes, and no crackles HEART: Regular rate and rhythm, normal S1 and S2, no murmurs, rubs or gallops ABDOMEN: Soft, nontender, normoactive bowel sounds. No guarding, no rebound. Gravid uterus EXTREMITIES: Normal range of motion, no edema. No clubbing or cyanosis. No cords, erythema, or tenderness BACK: no midline cervical, thoracic, lumbar ttp NEUROLOGICAL: Normal speech, cranial nerves intact, negative pronator drift, 5/ 5 strength in all 4 extremities, normal sensation to light touch in all 4 extremities, normal cerebellar exam, normal gait, normal reflexes and tone SKIN: Warm, Dry, normal turgor, no rashes or lesions noted. - Medical Decision Making 12/29/17 17:21 37-year-old female, 39 weeks presents to the emergency department after a piece of ceiling tile fell onto her head while she was sitting on the toilet. Vitals are within normal limits. Exam is within normal limits. Patient meets no criteria for [place] head CT, and is well-appearing and neurologically intact. Pt with no loss of consciousness after the head trauma. Will hold off on imaging at this time. The patient has been given return precautions if she develops nausea, vomiting, weakness, numbness or any new or concerning symptoms to return to the emergency department. I discussed the physical exam findings, ancillary test results and final diagnoses with the patient. I answered all of the patient's questions. The patient was satisfied with the care received and felt comfortable with the discharge plan and treatment plan. The patient will call their primary care physician within 24 hours to arrange follow-up and will return to the Emergency Department with any new, persistent or worsening symptoms.
[2017-12-29 18:17] VITALS: BP 115/75; PULSE 68
[2017-12-29 18:50] VITALS: TEMP 98.6
== END 2017-12-29 18:45 | disposition home or self-care (01) ==
LOC: JER 16:10
DX: O99.89 Other specified diseases and conditions complicating pregnancy, childbirth and the puerperium (principal); S09.8XXA Other specified injuries of head, initial encounter; S00.03XA Contusion of scalp, initial encounter; W20.1XXA Struck by object due to collapse of building, initial encounter; Y93.E8 Activity, other personal hygiene; Y92.031 Bathroom in apartment as the place of occurrence of the external cause; Y99.8 Other external cause status; Z3A.39 39 weeks gestation of pregnancy
CPT/HCPCS: 99282-25

== ENCOUNTER 2018-01-03 11:45 | Inpatient (IN) | payer OTHER ==
[2018-01-03 12:15] VITALS: BMI 41.1
[2018-01-03 13:11] LABS: BASO % 0.2 % (0-2.0); EOS % 0.9 % (0-4.5); HEMATOCRIT 34.7 % (32.4-45.2); LYMPH % 30.4 % (8-40); MCH 29.9 pg (25.7-33.7); MCHC 34.5 g/dl (32.0-36.0); MEAN CELL VOLUME 86.6 fl (80-96); MEAN PLT VOLUME 9.3 fl (7.5-11.1); MONO % 5.3 % (3.8-10.2); NEUT % 63.2 % (42.8-82.8); PLATELET COUNT 252 K/MM3 (134-434); RBC 4.01 M/mm3 (3.60-5.2); RDW 14.8 % (11.6-15.6); WHITE BLOOD COUNT 8.8 K/mm3 (4.0-10.0)
[2018-01-03 13:30] LABS: INR 0.87 (0.83-1.09); PROTHROMBIN TIME (PATIENT) 10.3 SEC (9.7-13.0)
[2018-01-03] MEDS: DEXTROSE 5%-LACTATED RINGERS 1,000 ML IV SCH (13:30)
[2018-01-03] MEDS ORDERED: DINOPROSTONE 10 MG VAGINAL SUPPOSITORY VG ONE (13:30)
[2018-01-03 13:32] LABS: ACTIVATED PTT 25.3 SECONDS (25.2-36.5)
--- NOTE | 2018-01-03 13:35 | HP ---
Past Medical History - Admission Chief Complaint: Abdominal cramps History of Present Illness: 37 yo @ 39 weeks gestation, admitted for cervidil induction. History Source: Patient Limitations to Obtaining History: No Limitations - Past Medical History ...: 3 ...Para: 1 ...Term: 1 ...Spon : 1 ...LMP: 04/03/17 ... Weeks Gestation by Dates: 39.2 ...EDC by Dates: 01/08/18 ...EDC by Sono: 01/07/18 - Past Surgical History Past Surgical History: Yes: None Hx Myomectomy: No Hx Transabdominal Cerclage: No - Smoking History Smoking history: Former smoker Have you smoked in the past 12 months: No Aproximately how many cigarettes per day: 10 - Alcohol/Substance Use Hx Alcohol Use: No History of Substance Use: reports: None - Social History Usual Living Arrangement: Yes: With Significant Other History of Recent Travel: No Home Medications - Allergies Allergies/Adverse Reactions: Allergies Allergy/AdvReac Type Severity Reaction Status Date / Time No Known Allergies Allergy Verified 01/03/18 12:27 - Home Medications Home Medications: Ambulatory Orders No122/Iron/Folic Acid [ Multi Tablet] 1 each PO DAILY 07/06/17 Family Disease History - Family Disease History Family History: Unremarkable Review of Systems - Review of Systems Constitutional: reports: No Symptoms Eyes: reports: No Symptoms HENT: reports: No Symptoms Neck: reports: No Symptoms Cardiovascular: reports: No Symptoms Respiratory: reports: No Symptoms Gastrointestinal: reports: No Symptoms Breasts: reports: No Symptoms Reported Musculoskeletal: reports: No Symptoms Integumentary: reports: No Symptoms Neurological: reports: No Symptoms Endocrine: reports: No Symptoms Hematology/Lymphatic: reports: No Symptoms Psychiatric: reports: No Symptoms Pain Intensity: 2 Physical Exam - Maternity Vital Signs: Vital Signs Temperature 98.1 F 01/03/18 12:09 Pulse Rate 82 01/03/18 12:09 Respiratory Rate 18 01/03/18 12:09 Blood Pressure 127/80 01/03/18 12:09 O2 Sat by Pulse Oximetry (%) Constitutional: Yes: Well Nourished Eyes: Yes: Conjunctiva Clear HENT: Yes: Atraumatic Neck: Yes: Supple Cardiovascular: Yes: Regular Rate and Rhythm - Abdominal Exam/OB Number of Fetuses: Single Presentation: Vertex - Vaginal Exam/OB Dilatation (cm): 1-2 Effacement (%): 70 Amniotic Membrane Status: Intact Presentation: Vertex/Position Station: -2 - Physical Exam Musculoskeletal: Yes: WNL Extremities: Yes: WNL ...Motor Strength: WNL Psychiatric: Yes: Alert, Oriented - Labs Lab Results: CBC, BMP 01/03/18 12:15 Problem List - Problems (1) 39 weeks gestation of Code(s): Z3A.39 - 39 WEEKS GESTATION OF Assessment/Plan 39 weeks gestation Admit for induction of labor Consent signed Anticipate
[2018-01-03 14:11] LABS: ANION GAP 9 MMOL/L (8-16); BLOOD UREA NITROGEN 12 mg/dL (7-18); CALCIUM 8.9 mg/dL (8.5-10.1); CHLORIDE 108 mmol/L (98-107); CO2 21 mmol/L (21-32); CREATININE 0.6 mg/dL (0.55-1.3); GLUCOSE,RANDOM 94 mg/dL (74-106); SODIUM 138 mmol/L (136-145)
[2018-01-03] MEDS ORDERED: AMPICILLIN SODIUM 2 GM VIAL ONE (20:26)
[2018-01-03] MEDS ORDERED: AMPICILLIN - 2 GM in SODIUM CHLORIDE 100 ML IVPB ONE (21:30)
[2018-01-03] MEDS ORDERED: BUTORPHANOL TARTRATE 1 MG/ML VIAL ONE ×2 (23:27)
[2018-01-03] MEDS ORDERED: PROMETHAZINE HCL 25 MG/1 ML VIAL ONE (23:28)
[2018-01-03] MEDS ORDERED: BUTORPHANOL TARTRATE 1 MG/ML VIAL IVPB ONE (23:30)
[2018-01-03] MEDS ORDERED: PROMETHAZINE HCL 25 MG/1 ML VIAL IVPB ONE (23:30)
[2018-01-04] MEDS ORDERED: AMPICILLIN SODIUM 1 GM VIAL ONE (00:47)
[2018-01-04] MEDS ORDERED: OXYTOCIN 20 UNITS in 0.9% NS 20 UNIT/1,000 ML INFUS.BAG IV ONE ×2 (00:47→03:30)
[2018-01-04] MEDS ORDERED: AMPICILLIN - 1 GM in SODIUM CHLORIDE 100 ML IVPB SCH (01:30)
[2018-01-04] MEDS ORDERED: BENZOCAINE 20% 57 GM BOTTLE TP PRN (01:39)
[2018-01-04] MEDS ORDERED: WITCH HAZEL 50% (TUCKS) 40 PAD/JAR PAD TP PRN (01:39)
[2018-01-04] MEDS ORDERED: BISACODYL 10 MG SUPP.RECT RC PRN (01:39)
[2018-01-04] MEDS ORDERED: BENZOCAINE 28 GM HEMORRHOIDAL OINTMENT TP PRN (01:39)
[2018-01-04] MEDS ORDERED: METHYLERGONOVINE MALEATE 0.2 MG/1 ML AMP IM PRN (01:39)
--- NOTE | 2018-01-04 01:42 | PN ---
Delivery - Delivery Vaginal Delivery: Spontaneous Episiotomy/Laceration: None EBL (cc): 300 Delivery, Single - Feeding Plan Initial Plan: Elected not to breastfeed exclusively throughout hospitalization Remarks - Remarks Remarks: Normal spontaneous vaginal delivery of a live infant girl over intact perineum. Nose / Oropharynx suctioned @ perineum. Cord clamped and cut. Baby handed to nurse. Placenta expelled spontaneously intact.
[2018-01-04] MEDS ORDERED: OXYTOCIN 20 UNITS in 0.9% NS 20 UNIT/1,000 ML INFUS.BAG IV SCH (01:45)
[2018-01-04] MEDS: IBUPROFEN 600 MG TABLET (FP) PO PRN (09:54)
[2018-01-04] MEDS: PRENATAL VITAMINS W/ FOLIC ACID TABLET (FP) PO SCH (09:54)
[2018-01-04] MEDS: FERROUS SO4 325 MG TABLET (FP) PO SCH ×2 (09:54→21:44)
[2018-01-04] MEDS: ACETAMINOPHEN 325 MG TABLET (FP) PO PRN (09:55)
--- NOTE | 2018-01-05 04:45 | PN ---
Post Note - Post Date of Delivery: 01/04/18 Vital Signs: Vital Signs - 24 hr 01/04/18 01/04/18 01/04/18 10:00 14:00 17:45 Temperature 98.6 F 98.2 F 98.2 F Pulse Rate 76 74 70 Respiratory 20 20 20 Rate Blood Pressure 117/76 114/64 122/82 01/04/18 22:00 Temperature 97.4 F L Pulse Rate 71 Respiratory 18 Rate Blood Pressure 118/67 - Subjective Subjective: No Complaints - Objective Afebrile: Yes Breast: Not engorged Abdomen: Soft, Non-tender Uterus: Fundus firm Vagina: Scant lochia Extremities: Non-tender
[2018-01-05] MEDS: ACETAMINOPHEN 325 MG TABLET (FP) PO PRN ×2 (07:24→21:06)
[2018-01-05] MEDS: IBUPROFEN 600 MG TABLET (FP) PO PRN ×2 (07:27→21:05)
[2018-01-05 08:07] LABS: BASO % 0.3 % (0-2.0); EOS % 1.5 % (0-4.5); HEMOGLOBIN 10.8 GM/dL (10.7-15.3); LYMPH % 33.3 % (8-40); MCH 29.7 pg (25.7-33.7); MCHC 33.7 g/dl (32.0-36.0); MEAN PLT VOLUME 9.3 fl (7.5-11.1); NEUT % 58.9 % (42.8-82.8); PLATELET COUNT 189 K/MM3 (134-434); RBC 3.63 M/mm3 (3.60-5.2); RDW 15.1 % (11.6-15.6); WHITE BLOOD COUNT 9.2 K/mm3 (4.0-10.0)
[2018-01-05] MEDS: FERROUS SO4 325 MG TABLET (FP) PO SCH ×2 (10:24→21:05)
[2018-01-05] MEDS: PRENATAL VITAMINS W/ FOLIC ACID TABLET (FP) PO SCH (10:24)
[2018-01-05] MEDS ORDERED: SENNOSIDES/DOCUSATE COMBO (SENNA PLUS) TABLET (UD) PO PRN (22:00)
--- NOTE | 2018-01-06 09:07 | DS ---
Physical Exam-BURNT LIME DRAWER Vital Signs: Vital Signs Temperature 98 F 01/05/18 22:00 Pulse Rate 73 01/05/18 22:00 Respiratory Rate 18 01/05/18 22:00 Blood Pressure 124/69 01/05/18 22:00 O2 Sat by Pulse Oximetry (%) 98 01/04/18 03:15 Constitutional: Yes: Well Nourished, No Distress, Poor Hygeine HENT: Yes: Atraumatic Neck: Yes: Supple Gastrointestinal: Yes: Normal Bowel Sounds ....Post : Yes: Uterus firm, Uterus non-tender Neurological: Yes: Alert, Oriented Psychiatric: Yes: Alert, Oriented Labs: CBC, BMP 01/05/18 07:00 01/03/18 12:15 Delivery - Delivery Vaginal Delivery: Spontaneous Type of Anesthesia: None Episiotomy/Laceration: None EBL (cc): 300 Delivery, Single - Stages of Labor Date 1st Stage Initiatied: 01/04/18 Time 1st Stage Initiated: 00:35 Date 2nd Stage Initiated: 01/04/18 Time 2nd Stage Initiated: 01:20 Date of Delivery: 01/04/18 Time of Delivery: 01:30 Time Placenta Delivered: 01:35 - Condition of Computer Forensics Analyst/Trimmer Machine Present: No Gender: Female Weight: 7 lb 13 oz Position: Left, OA Total Hours ROM (Hrs/Mins): 1HOUR - 1 Minute Total Score: 9 5 Minutes Total Score: 9 - [place] Feeding Plan Initial Plan: Elected not to breastfeed exclusively throughout hospitalization Discharge Summary Reason For Visit: INDUCTION OF LABOR Current Active Problems 39 weeks gestation of (Acute) Procedures: Principal: Normal vaginal delivery - Instructions Diet, Activity, Other Instructions: Physical activity Resume your normal everyday activity as tolerated no heavy lifting or exercise until seen by your surgeon. You may walk unlimited benjamin of and climb stairs. You may resume driving the car when you feel safe and comfortable behind the wheel. No sexual activity as instructed. Wound care If you have a bandage, leave it on, and keep dry for 48-72 hours. After that time discard the outer bandage. If they are tapes on the skin under the out of bandage leave them in place. They will peel off in the next 7 to 10 days. Do Not Peel them off. You may shower the day after surgery. If there are tapes present on the skin, you may shower over them. Diet There are no dietary restrictions. Eat healthy, high-fiber foods. Drink 6 to 8 glasses of liquid each day. This will assist in keeping your bowels are regular. Pain management You may take Tylenol or acetaminophen or Ibuprofen (for example, Motrin, Advil etc.) from my pain prescription medication is ordered should be taken as prescribed for moderate to severe pain. Call MD for any of the following: Severe pain not relieved by medication Fever of 101 or higher Excessive bleeding or drainage on dressing Inability to urinate Referrals: Evie Guidry MD [Staff Physician] - 1 Month Disposition: HOME - Home Medications Comprehensive Discharge Medication List: Ambulatory Orders No122/Iron/Folic Acid [ Multi Tablet] 1 each PO DAILY 07/06/17
[2018-01-06] MEDS: PRENATAL VITAMINS W/ FOLIC ACID TABLET (FP) PO SCH (09:36)
[2018-01-06] MEDS: IBUPROFEN 600 MG TABLET (FP) PO PRN (09:36)
[2018-01-06] MEDS: ACETAMINOPHEN 325 MG TABLET (FP) PO PRN (09:36)
[2018-01-06] MEDS: FERROUS SO4 325 MG TABLET (FP) PO SCH (09:37)
[2018-01-06 10:40] VITALS: BP 127/68; PULSE 68; TEMP 97.8
[2018-01-06] MEDS: DEXTROSE 5%-LACTATED RINGERS 1,000 ML IV SCH (11:08)
== END 2018-01-06 12:15 | disposition home or self-care (01) | DRG 560 ==
LOC: JLDR 11:45 → J3W 01-04 04:21
PROVIDERS: ADMIT Obstetrics & Gynecology; ATTEND Obstetrics & Gynecology
PROC: 10E0XZZ Delivery of Products of Conception, External Approach (ICD-10-PCS; principal; 2018-01-04)
DX: O80 Encounter for full-term uncomplicated delivery (principal); Z3A.39 39 weeks gestation of pregnancy; Z37.0 Single live birth
CPT/HCPCS: 36415; 59409; 80048; 85025; 85610; 85730; 86593; 86850; 86900; 86901

== ENCOUNTER 2019-02-06 22:24 | Emergency (ER) | payer OTHER ==
[2019-02-06 22:34] VITALS: BMI 35.1
--- NOTE | 2019-02-06 22:42 | PDOC ---
History of Present Illness - General Chief Complaint: Respiratory Stated Complaint: FEVER Time Seen by Provider: 02/06/19 22:42 - History of Present Illness Initial Comments: 02/06/19 22:54 38 year old with no pmhx who presents with 1 day of fever, mid abdominal pain and nonbloody loose stools. She admits to some headache but denies any cough, congestion, dysuria, hematuria, nausea or vomiting. She has no other complaints. She stopped smoking 1 month ago. ROS GENERAL/CONSTITUTIONAL: No fever or chills. No weakness. HEAD, EYES, EARS, NOSE AND THROAT: No change in vision. No ear pain or discharge. No sore throat. CARDIOVASCULAR: No chest pain or shortness of breath RESPIRATORY: No cough, wheezing, or hemoptysis. GASTROINTESTINAL: No nausea, vomiting, diarrhea or constipation. GENITOURINARY: No dysuria, frequency, or change in urination. MUSCULOSKELETAL: No joint or muscle swelling or pain. No neck or back pain. SKIN: No rash NEUROLOGIC: + headache, No vertigo, loss of consciousness, or change in strength /sensation. PE GENERAL: Awake, alert, and fully oriented, in no acute distress HEAD: No signs of trauma, normocephalic, atraumatic EYES: EOMI, sclera anicteric, conjunctiva clear ENT: oropharynx clear without exudates. Moist mucosa NECK: Normal ROM, supple, LUNGS: No distress, speaks full sentences, clear to auscultation bilaterally HEART: Regular rate and rhythm, normal S1 and S2, no murmurs, rubs or gallops, peripheral pulses normal and equal bilaterally. ABDOMEN: Soft, nontender No guarding, no rebound. No masses EXTREMITIES : Normal inspection, Normal range of motion, no edema. No clubbing or cyanosis. NEUROLOGICAL: Cranial nerves II through XII grossly intact. Normal speech, no focal sensorimotor deficits SKIN: Warm, Dry, normal turgor, no rashes or lesions noted MDM DDX including but not limited to: W/U: - TX: - Scores: ED Course: Lorraine Will, PGY2 Emergency Medicine Past History - Past Medical History Allergies/Adverse Reactions: Allergies Allergy/AdvReac Type Severity Reaction Status Date / Time No Known Allergies Allergy Verified 02/06/19 22:34 Home Medications: Ambulatory Orders No122/Iron/Folic Acid [ Multi Tablet] 1 each PO DAILY 07/06/17 Ibuprofen [Motrin -] 600 mg PO QID PRN #28 tablet 01/06/18 Ciprofloxacin [Cipro (Restricted To Id)] 500 mg PO BID #14 tablet 02/07/19 metroNIDAZOLE [Flagyl -] 500 mg PO TID 7 Days #21 tablet 02/07/19 Asthma: No Cancer: No Cardiac Disorders: No COPD: No Diabetes: No HTN: No Seizures: No Thyroid Disease: No - Reproductive History (#): 3 Para: 1 Spontaneous : 1 - Immunization History Immunization Up to Date: Yes - Psycho Social/Smoking Cessation Hx Smoking History: Former smoker Have you smoked in the past 12 months: No Number of Cigarettes Smoked Daily: 10 Information on smoking cessation initiated: No 'Breaking Loose' booklet given: 10/09/16 Hx Alcohol Use: No Drug/Substance Use Hx: No Substance Use Type: None Hx Substance Use Treatment: No *Physical Exam - Vital Signs Last Vital Signs Temp Pulse Resp BP Pulse Ox 102.1 F H 112 H 18 115/69 100 02/06/19 22:28 02/06/19 22:28 02/06/19 22:28 02/06/19 22:28 02/06/19 22:28 ED Treatment Course - LABORATORY CBC & Chemistry Diagram: 02/06/19 23:30 02/06/19 23:30 Discharge - Discharge Information Problems reviewed: Yes Clinical Impression/Diagnosis: Colitis Condition: Stable Disposition: HOME - Admission No - Additional Discharge Information Prescriptions: Ciprofloxacin [Cipro (Restricted To Id)] 500 mg PO BID #14 tablet metroNIDAZOLE [Flagyl -] 500 mg PO TID 7 Days #21 tablet - Follow up/Referral Referrals: Hannah Mancera MD [Primary Care Provider] - Best Brunson MD [Staff Physician] - - Patient Discharge Instructions Patient Printed Discharge Instructions: DI for Colitis Additional Instructions: You were seen in the ED for fever, abdominal pain and diarrhea Your ct scan showed an inflammation in your colon You have antibiotics prescribed to your pharmacy and should be taken as directed You have a referral for GI and should follow up within 1 week Return to the ED if you have worsening abdominal pain, worsening fever, nausea, vomiting, blood in the stool or any other concerning symptoms - Post Discharge Activity
[2019-02-06] MEDS ORDERED: ACETAMINOPHEN 1000 MG/100 ML VIAL (NON FORMULARY) IVPB ONE (22:44)
[2019-02-06] MEDS ORDERED: SODIUM CHLORIDE 1,000 ML IV SCH (22:45)
[2019-02-06] MEDS ORDERED: ACETAMINOPHEN INJECTION 100 ML IVPB ONE (23:13)
[2019-02-06 23:43] LABS: BASO % 0.5 % (0-2.0); EOS % 0.1 % (0-4.5); HEMATOCRIT 37.6 % (32.4-45.2); HEMOGLOBIN 12.9 GM/dL (10.7-15.3); LYMPH % 15.2 % (8-40); MCH 29.7 pg (25.7-33.7); MCHC 34.4 g/dl (32.0-36.0); MEAN CELL VOLUME 86.3 fl (80-96); MEAN PLT VOLUME 9.2 fl (7.5-11.1); MONO % 5.2 % (3.8-10.2); PLATELET COUNT 216 K/MM3 (134-434); RBC 4.36 M/mm3 (3.60-5.2); RDW 13.1 % (11.6-15.6)
[2019-02-06 23:53] LABS: INR 1.1 (0.83-1.09)
[2019-02-06 23:55] LABS: VENOUS PC02 39.4 mmHg (38-52); VENOUS PH 7.42 (7.31-7.41); VENOUS PO2 < 49 mmHg (28-48)
[2019-02-07 00:14] LABS: ALBUMIN 3.4 g/dl (3.4-5.0); BILIRUBIN,TOTAL 0.5 mg/dL (0.2-1); BLOOD UREA NITROGEN 11.3 mg/dL (7-18); CALCIUM 8.4 mg/dL (8.5-10.1); CREATININE 0.7 mg/dL (0.55-1.3); POTASSIUM 3.8 mmol/L (3.5-5.1)
--- NOTE | 2019-02-07 00:36 | PDOC ---
Attending Attestation - Resident Resident Name: Lorraine Will - ED Attending Attestation I have performed the following: I have examined & evaluated the patient, The case was reviewed & discussed with the resident, I agree w/resident's findings & plan, Exceptions are as noted - HPI HPI: 02/07/19 00:32 38 yo F with ho umbilical hernia, repair with mesh, here with c/o diarreha, fever. started last evening. has had 6 - 8 bm loose, watery, nonbloody. c/o lower ad pain. fever 102. denie vaginal dc. no urinary complaints. no nausea, or vomiting. no travel. no sick contacts. no cough, no other complaints. - Physicial Exam PE: 02/07/19 00:33 awake alert lungs clear bilat heart rrr abd soft mild llq , suprapubic ttp. no rebound no guarding. no cva tendernss. skin warm and dry. alert oriented x 3. - Medical Decision Making 02/07/19 00:34 38 yo F with diarrhea, fever llq ttp on exam. differential colitis, entertis, diveritculitis uti, plan ua labs ct a/p iv hydration.
[2019-02-07 01:20] LABS: EPI CELLS 6.6 /HPF (0-5/HPF); HYALINE CASTS 21 /lpf (0-8); PH,URINE 5.5 (5.0-8.0); URINE APPEARANCE CLOUDY; URINE BACTERIA 422.8 /hpf (NEGATIVE); URINE BILIRUBIN NEGATIVE (NEGATIVE); URINE COLOR YELLOW; URINE GLUCOSE (UA) NEGATIVE (NEGATIVE); URINE KETONE 1+ (NEGATIVE); URINE LEUK ESTERASE NEGATIVE (NEGATIVE); URINE NITRITE NEGATIVE (NEGATIVE); URINE PROTEIN 2+ (NEGATIVE); URINE RBC 4 /hpf (0-4)
[2019-02-07 02:20] VITALS: BP 100/57; PULSE 85; TEMP 98
[2019-02-07] MEDS ORDERED: CIPROFLOXACIN 500 MG TABLET (RESTRICTED TO ID) PO ONE (03:25)
[2019-02-07] MEDS ORDERED: metroNIDAZOLE 500 MG TABLET PO ONE (03:25)
[2019-02-07 03:42] LABS: ACTIVATED PTT 28.8 SECONDS (25.2-36.5)
--- NOTE | 2019-02-07 13:55 | EKG ---
Test Reason : Blood Pressure : / mmHG Vent. Rate : 102 BPM Atrial Rate : 102 BPM P-R Int : 120 ms QRS Dur : 088 ms QT Int : 348 ms P-R-T Axes : 026 068 004 degrees QTc Int : 453 ms POOR DATA QUALITY, INTERPRETATION MAY BE ADVERSELY AFFECTED SINUS TACHYCARDIA T WAVE ABNORMALITY, CONSIDER ANTERIOR ISCHEMIA ABNORMAL ECG NO PREVIOUS ECGS AVAILABLE Confirmed by EDWARD AGUILAR MD ([id number]) on 02/07/2019 1:55:29 PM Referred By: Confirmed By:EDWARD AGUILAR MD
== END 2019-02-07 04:04 | disposition home or self-care (01) ==
LOC: JER 22:24
PROC: 3E033NZ Introduction of Analgesics, Hypnotics, Sedatives into Peripheral Vein, Percutaneous Approach (ICD-10-PCS; principal; 2019-02-06)
DX: K52.9 Noninfective gastroenteritis and colitis, unspecified (principal); Z87.891 Personal history of nicotine dependence
CPT/HCPCS: 36415; 71045-TC-FY; 74177-TC; 80053; 81003; 82803; 83605; 84484; 84703; 85025; 85610; 85730; 87086; 93005; 93010; 99283-25; J0131; J7030

== ENCOUNTER 2022-04-27 13:29 | Emergency (ER) | payer OTHER ==
[2022-04-27 13:47] VITALS: BP 121/61; PULSE 70; RESP 18; TEMP 97.5; BMI 35.5
[2022-04-27] MEDS ORDERED: KETOROLAC TROMETHAMINE 30 MG/1 ML VIAL IM ONE (15:25)
[2022-04-27] MEDS ORDERED: KETOROLAC TROMETHAMINE 30 MG/1 ML VIAL ONE (15:59)
== END 2022-04-27 16:37 | disposition home or self-care (01) ==
LOC: JER 13:29 → JERFT 13:29
PROC: 3E023GC Introduction of Other Therapeutic Substance into Muscle, Percutaneous Approach (ICD-10-PCS; principal; 2022-04-27)
DX: M54.89 Other dorsalgia (principal)
CPT/HCPCS: 73502-TC-RT-FY; 84703; 99284-25

== ENCOUNTER 2023-07-18 08:41 | Emergency (ER) | payer OTHER ==
[2023-07-18 08:55] VITALS: BP 123/81; PULSE 60; RESP 18; TEMP 99; BMI 36.8
[2023-07-18 10:03] LABS: BASO % 0.2 % (0-2.0); EOS % 1.6 % (0-4.5); HEMATOCRIT 35.5 % (32.4-45.2); HEMOGLOBIN 11.9 GM/dL (10.7-15.3); LYMPH % 40.9 % (8-40); MCH 28.3 pg (25.7-33.7); MCHC 33.7 g/dl (32.0-36.0); MEAN CELL VOLUME 84.1 fl (80-96); MEAN PLT VOLUME 8.6 fl (7.5-11.1); MONO % 7.6 % (3.8-10.2); NEUT % 49.7 % (42.8-82.8); PLATELET COUNT 258 10^3/uL (134-434); RBC 4.21 M/mm3 (3.60-5.2); RDW 14.4 % (11.6-15.6); WHITE BLOOD COUNT 7.1 K/mm3 (4.0-10.0)
[2023-07-18 10:06] LABS: EPI CELLS >36 /uL (0-25.1); HYALINE CASTS 1 /uL (0-3.1); PH,URINE 5.5 (5.0-8.0); URINE APPEARANCE CLOUDY; URINE BACTERIA 1385 /uL (0-1359); URINE BILIRUBIN NEGATIVE (NEGATIVE); URINE COLOR YELLOW; URINE GLUCOSE (UA) NEGATIVE (NEGATIVE); URINE KETONE NEGATIVE (NEGATIVE); URINE LEUK ESTERASE 1+ (NEGATIVE); URINE NITRITE NEGATIVE (NEGATIVE); URINE PROTEIN NEGATIVE (NEGATIVE); URINE RBC 9 /uL (0-23.9); URINE WBC 128 /uL (0-25.8)
== END 2023-07-18 13:40 | disposition home or self-care (01) ==
LOC: JER 08:41
DX: O20.9 Hemorrhage in early pregnancy, unspecified (principal); Z3A.00 Weeks of gestation of pregnancy not specified
CPT/HCPCS: 36415; 76801-TC; 81003; 84702; 85025; 86850; 86900; 86901; 99284-25

== ENCOUNTER 2023-10-20 16:36 | Observation (INO) | payer OTHER ==
[2023-10-20] MEDS: SODIUM CHLORIDE 0.9% 500 ML INFUS.BAG IV ONE (17:19)
[2023-10-20 17:22] LABS: BASO % 0.3 % (0-2.0); EOS % 0.9 % (0-4.5); HEMATOCRIT 28.9 % (32.4-45.2); HEMOGLOBIN 9.7 GM/dL (10.7-15.3); MCH 27.2 pg (25.7-33.7); MCHC 33.6 g/dl (32.0-36.0); MEAN CELL VOLUME 81.2 fl (80-96); MEAN PLT VOLUME 7.6 fl (7.5-11.1); MONO % 6.6 % (3.8-10.2); NEUT % 68.2 % (42.8-82.8); PLATELET COUNT 279 10^3/uL (134-434); RBC 3.56 M/mm3 (3.60-5.2); RDW 14.1 % (11.6-15.6); WHITE BLOOD COUNT 8.5 K/mm3 (4.0-10.0)
[2023-10-20 17:40] LABS: CHLORIDE 108 mmol/L (98-107); POTASSIUM 3.9 mmol/L (3.5-5.1); SODIUM 139 mmol/L (136-145)
[2023-10-20 17:43] LABS: CALCIUM 8.4 mg/dL (8.5-10.1)
[2023-10-20 17:44] LABS: ALBUMIN 2.5 g/dl (3.4-5.0); ANION GAP 9 mmol/L (4-13); BLOOD UREA NITROGEN 11.3 mg/dL (7-18); CO2 22 mmol/L (21-32); GLUCOSE,RANDOM 88 mg/dL (74-106); MAGNESIUM 1.8 mg/dL (1.8-2.4)
[2023-10-20 17:47] LABS: CREATININE 0.5 mg/dL (0.55-1.3); SGOT/AST 11 U/L (15-37); SGPT/ALT 18 U/L (13-61)
[2023-10-20 17:48] LABS: BILIRUBIN,TOTAL 0.3 mg/dL (0.2-1); TOT PROT 6.2 g/dl (6.4-8.2)
[2023-10-20 17:50] LABS: ALK PHOS 65 U/L (45-117)
[2023-10-20 17:51] VITALS: RESP 18
[2023-10-20 18:09] VITALS: BMI 39.4
[2023-10-20] MEDS: METOPROLOL TARTRATE 25 MG TABLET (FP) PO SCH (23:17)
[2023-10-20] MEDS: SODIUM CHLORIDE 1,000 ML IV STA (23:17)
[2023-10-21 07:23] LABS: POTASSIUM 3.9 mmol/L (3.5-5.1)
[2023-10-21 07:25] LABS: CALCIUM 8.3 mg/dL (8.5-10.1)
[2023-10-21 07:26] LABS: ALBUMIN 2.4 g/dl (3.4-5.0); BLOOD UREA NITROGEN 9.1 mg/dL (7-18); MAGNESIUM 1.9 mg/dL (1.8-2.4)
[2023-10-21 07:29] LABS: CREATININE 0.4 mg/dL (0.55-1.3); PHOSPHOROUS 3.5 mg/dL (2.5-4.9)
[2023-10-21 07:31] LABS: BILIRUBIN,TOTAL 0.2 mg/dL (0.2-1); TOT PROT 5.6 g/dl (6.4-8.2)
[2023-10-21] MEDS: LEVOTHYROXINE 112 MCG, LEVOTHYROXINE 25 MCG PO SCH (07:32)
[2023-10-21 07:46] LABS: BASO % 0.3 % (0-2.0); EOS % 1.3 % (0-4.5); HEMATOCRIT 26.2 % (32.4-45.2); LYMPH % 35.4 % (8-40); MCH 28.2 pg (25.7-33.7); MCHC 34.4 g/dl (32.0-36.0); MEAN CELL VOLUME 82.1 fl (80-96); MONO % 6.8 % (3.8-10.2); NEUT % 56.2 % (42.8-82.8); PLATELET COUNT 268 10^3/uL (134-434); RBC 3.19 M/mm3 (3.60-5.2); RDW 14.2 % (11.6-15.6); WHITE BLOOD COUNT 7.3 K/mm3 (4.0-10.0)
[2023-10-22] MEDS ORDERED: LEVOTHYROXINE NA 25 MCG TABLET (FP) ONE (06:04)
[2023-10-22 08:11] LABS: HEMATOCRIT 29.4 % (32.4-45.2); HEMOGLOBIN 9.9 GM/dL (10.7-15.3); MCH 27.4 pg (25.7-33.7); MCHC 33.7 g/dl (32.0-36.0); MEAN CELL VOLUME 81.3 fl (80-96); MEAN PLT VOLUME 7.8 fl (7.5-11.1); PLATELET COUNT 285 10^3/uL (134-434); RBC 3.62 M/mm3 (3.60-5.2); WHITE BLOOD COUNT 7.6 K/mm3 (4.0-10.0)
[2023-10-22 08:27] VITALS: PULSE 72
[2023-10-22 08:32] LABS: POTASSIUM 4.3 mmol/L (3.5-5.1)
[2023-10-22 08:35] LABS: BLOOD UREA NITROGEN 6.8 mg/dL (7-18); CALCIUM 8.9 mg/dL (8.5-10.1); MAGNESIUM 1.7 mg/dL (1.8-2.4)
[2023-10-22 08:39] LABS: CREATININE 0.4 mg/dL (0.55-1.3); PHOSPHOROUS 3.5 mg/dL (2.5-4.9)
[2023-10-22] MEDS: MAGNESIUM OXIDE 400 MG TABLET (FP) PO ONE (11:41)
[2023-10-22 14:30] VITALS: BP 110/72; TEMP 98.1
== END 2023-10-22 15:08 | disposition home or self-care (01) ==
LOC: JER 16:36 → JERBED 21:44 → J4S 10-21 00:16
PROVIDERS: ADMIT Internal Medicine; ATTEND Internal Medicine
PROC: 3E0337Z Introduction of Electrolytic and Water Balance Substance into Peripheral Vein, Percutaneous Approach (ICD-10-PCS; principal; 2023-10-20)
DX: I47.10 Supraventricular tachycardia, unspecified (principal); Z3A.22 22 weeks gestation of pregnancy; E03.9 Hypothyroidism, unspecified
CPT/HCPCS: 36415; 76815; 80048; 80053; 82550; 83735; 84100; 84439; 84443; 84481; 84484; 85025; 85027; 93005; 93010; 93306-TC; 99285-25; G0378

== ENCOUNTER 2023-11-05 08:54 | Emergency (ER) | payer OTHER ==
[2023-11-05 09:16] VITALS: BMI 39.4
[2023-11-05] MEDS: SODIUM CHLORIDE 0.9% 500 ML INFUS.BAG IV ONE (10:49)
[2023-11-05 11:01] LABS: BASO % 0.2 % (0-2.0); EOS % 0.9 % (0-4.5); HEMATOCRIT 29.4 % (32.4-45.2); HEMOGLOBIN 9.9 GM/dL (10.7-15.3); LYMPH % 26.9 % (8-40); MCH 26.9 pg (25.7-33.7); MCHC 33.8 g/dl (32.0-36.0); MEAN CELL VOLUME 79.8 fl (80-96); MEAN PLT VOLUME 7.5 fl (7.5-11.1); PLATELET COUNT 289 10^3/uL (134-434); RBC 3.69 M/mm3 (3.60-5.2); RDW 14.5 % (11.6-15.6); WHITE BLOOD COUNT 8.4 K/mm3 (4.0-10.0)
[2023-11-05 11:17] LABS: POTASSIUM 4.2 mmol/L (3.5-5.1)
[2023-11-05 11:20] LABS: ALBUMIN 2.7 g/dl (3.4-5.0); BLOOD UREA NITROGEN 8.3 mg/dL (7-18); CALCIUM 8.7 mg/dL (8.5-10.1)
[2023-11-05 11:23] LABS: CREATININE 0.3 mg/dL (0.55-1.3)
[2023-11-05 11:25] LABS: BILIRUBIN,TOTAL 0.6 mg/dL (0.2-1); TOT PROT 6.2 g/dl (6.4-8.2)
[2023-11-05 11:28] LABS: N-TERMINAL BNP 130.2 pg/ml (5-125)
[2023-11-05 11:59] LABS: EPI CELLS >36 /uL (0-25.1); HYALINE CASTS 1 /uL (0-3.1); PH,URINE 7.5 (5.0-8.0); URINE APPEARANCE CLOUDY; URINE BACTERIA 1473 /uL (0-1359); URINE BILIRUBIN NEGATIVE (NEGATIVE); URINE COLOR YELLOW; URINE GLUCOSE (UA) NEGATIVE (NEGATIVE); URINE KETONE NEGATIVE (NEGATIVE); URINE LEUK ESTERASE 2+ (NEGATIVE); URINE NITRITE NEGATIVE (NEGATIVE); URINE PROTEIN TRACE (NEGATIVE); URINE RBC 9 /uL (0-23.9); URINE WBC 49 /uL (0-25.8)
[2023-11-05 12:36] VITALS: RESP 18
[2023-11-05 15:13] VITALS: BP 121/70; PULSE 72
[2023-11-05 15:19] VITALS: TEMP 98.1
== END 2023-11-05 17:05 | disposition home or self-care (01) ==
LOC: JER 08:54
DX: O09.521 Supervision of elderly multigravida, first trimester (principal); O23.42 Unspecified infection of urinary tract in pregnancy, second trimester; O99.891 Other specified diseases and conditions complicating pregnancy; R53.1 Weakness; R53.83 Other fatigue; Z3A.26 26 weeks gestation of pregnancy; Z20.822 Contact with and (suspected) exposure to COVID-19
CPT/HCPCS: 0241U-QW; 36415; 76815-TC; 80053; 81003; 83880; 84436; 84443; 84484; 85025; 87086; 93005; 93010; 93306-TC; 99284-25

== ENCOUNTER 2024-02-11 05:50 | Inpatient (IN) | payer OTHER ==
[2024-02-11] MEDS: ELECTROLYTE-148 SOLN 1,000 ML IV SCH (06:15)
[2024-02-11] MEDS ORDERED: AMPICILLIN SODIUM 2 GM VIAL ONE (06:17)
[2024-02-11] MEDS: AMPICILLIN - 2 GM in SODIUM CHLORIDE 100 ML IVPB ONE (06:20)
[2024-02-11 06:31] VITALS: BMI 43.2
[2024-02-11] MEDS ORDERED: OXYTOCIN 20 UNITS in 0.9% NS 20 UNIT/1,000 ML INFUS.BAG IV ONE ×2 (06:33→09:52)
[2024-02-11 06:41] LABS: BASO % 0.4 % (0-2.0); EOS % 0.6 % (0-4.5); HEMATOCRIT 28.1 % (32.4-45.2); HEMOGLOBIN 8.9 GM/dL (10.7-15.3); LYMPH % 29.6 % (8-40); MCH 23.2 pg (25.7-33.7); MCHC 31.8 g/dl (32.0-36.0); MEAN CELL VOLUME 73.2 fl (80-96); MEAN PLT VOLUME 8.6 fl (7.5-11.1); MONO % 5.7 % (3.8-10.2); NEUT % 63.7 % (42.8-82.8); PLATELET COUNT 280 10^3/uL (134-434); RBC 3.84 M/mm3 (3.60-5.2); RDW 16.4 % (11.6-15.6); WHITE BLOOD COUNT 12.6 K/mm3 (4.0-10.0)
[2024-02-11 06:48] LABS: INR 0.84 (0.83-1.09); PROTHROMBIN TIME (PATIENT) 9.7 SEC (9.7-13.0)
[2024-02-11 06:49] LABS: POTASSIUM 4.3 mmol/L (3.5-5.1)
[2024-02-11 06:51] LABS: CALCIUM 9.4 mg/dL (8.5-10.1)
[2024-02-11 06:52] LABS: BLOOD UREA NITROGEN 14.3 mg/dL (7-18)
[2024-02-11 06:55] LABS: CREATININE 0.6 mg/dL (0.55-1.3)
[2024-02-11] MEDS: OXYTOCIN 20 UNITS in 0.9% NS 20 UNIT/1,000 ML INFUS.BAG IV SCH (07:25)
[2024-02-11 08:46] LABS: CORD BASE EXCESS -3.5 mmol/L (0-2); CORD BASE EXCESS -7.6 mmol/L (0-2); CORD HCO3 20.5 mmHg (20-29); CORD HCO3 21.1 mmHg (20-29); CORD PCO2 50.7 mmHg (30-78); CORD pH 7.224 (7.14-7.44)
[2024-02-11 08:47] LABS: CORD pH 7.374 (7.14-7.44)
[2024-02-11] MEDS ORDERED: BISACODYL 10 MG SUPP.RECT RC PRN (09:02)
[2024-02-11] MEDS ORDERED: WITCH HAZEL 50% (TUCKS) 40 PAD/JAR PAD TP PRN (09:02)
[2024-02-11] MEDS ORDERED: METHYLERGONOVINE MALEATE 0.2 MG/1 ML AMP IM PRN (09:02)
[2024-02-11] MEDS ORDERED: BENZOCAINE 20% 57 GM BOTTLE TP PRN (09:02)
[2024-02-11] MEDS ORDERED: BENZOCAINE 28 GM HEMORRHOIDAL OINTMENT TP PRN (09:02)
[2024-02-11 09:43] LABS: HIV INTERPRETATION NEGATIVE (NEGATIVE)
[2024-02-11] MEDS: IBUPROFEN 600 MG TABLET (FP) PO PRN (21:24)
[2024-02-12] MEDS: LEVOTHYROXINE NA 112 MCG TABLET (FP) PO SCH (07:20)
[2024-02-12] MEDS: LEVOTHYROXINE NA 25 MCG TABLET (FP) PO SCH (07:20)
[2024-02-12 07:30] LABS: BASO % 0.4 % (0-2.0); HEMATOCRIT 25.7 % (32.4-45.2); HEMOGLOBIN 8.2 GM/dL (10.7-15.3); LYMPH % 28.3 % (8-40); MCH 23.6 pg (25.7-33.7); MCHC 32.1 g/dl (32.0-36.0); MEAN CELL VOLUME 73.7 fl (80-96); MEAN PLT VOLUME 8.1 fl (7.5-11.1); MONO % 5.6 % (3.8-10.2); NEUT % 64.7 % (42.8-82.8); PLATELET COUNT 240 10^3/uL (134-434); RBC 3.48 M/mm3 (3.60-5.2); RDW 16.4 % (11.6-15.6); WHITE BLOOD COUNT 9.6 K/mm3 (4.0-10.0)
[2024-02-12] MEDS: ACETAMINOPHEN 325 MG TABLET (FP) PO PRN (09:58)
[2024-02-12] MEDS: metoPROLOL SUCCINATE 25 MG TAB.SR.24H (FP) PO SCH (11:42)
[2024-02-12] MEDS ORDERED: SENNOSIDES/DOCUSATE COMBO (SENNA PLUS) TABLET (UD) PO PRN (22:00)
[2024-02-13] MEDS: LEVOTHYROXINE 112 MCG, LEVOTHYROXINE 25 MCG PO SCH (06:08)
[2024-02-13 10:58] VITALS: BP 125/80; PULSE 70; RESP 18; TEMP 98
== END 2024-02-13 12:40 | disposition home or self-care (01) | DRG 807 ==
LOC: JLDR 05:50 → J3W 10:00
PROVIDERS: ADMIT Obstetrics & Gynecology; ATTEND Obstetrics & Gynecology
PROC: 10E0XZZ Delivery of Products of Conception, External Approach (ICD-10-PCS; principal; 2024-02-11)
DX: O99.824 Streptococcus B carrier state complicating childbirth (principal); Z37.0 Single live birth; Z3A.38 38 weeks gestation of pregnancy
CPT/HCPCS: 36415; 36600; 59409; 80048; 82803; 85025; 85610; 85730; 86780; 86850; 86900; 86901; 87389